=== PATIENT | male | born 1950 | race Caucasian/White ===

== ENCOUNTER → 2021-11-05 13:03 | Outpatient (CLI) | payer MEDICARE, SELFPAY ==
--- NOTE | ~2021-11-05 | MR_ITS ---
EXAMINATION: MR lumbar spine wo con DATE: 11/05/2021 13:38 INDICATION: Chronic low back pain. TECHNIQUE: Magnetic resonance imaging (MRI) of the lumbar spine was performed without intravenous con trast. Sequences included sagittal T2-weighted FSE, sagittal T2-weighted FS FSE, sagittal T1-weighted FSE, and axial T2-weighted FSE. COMPARISON: Lumbar spine radiographs 10/24/2021 FINDINGS: There is 5 degrees levocurvature of lumbar spine. There is 3 mm retrolisthesis of L1 on L2 and L2 on L3. Vertebral body heights are normal. There is mildly decreased disc height at T12-L1 and L1-L2, severely decreased disc height at L2-L3, mildly decreased disc height at L3-L4, and moderately decreased disc height at L4-L5. The distal spinal cord signal intensity is normal. The conus medulla ris is at T12-L1. The following disc levels are specifically discussed: L1-L2: The disc is bulging and has an annular fissure. There is mild bilateral facet joint osteoarthr itis. There is mild bilateral neural foraminal stenosis. There is mild central canal stenosis. L2-L3: The disc is bulging and has an annular fissure. There is no facet joint osteoarthritis. There is moderate bilateral neural foraminal stenosis. There is mild central canal stenosis. L3-L4: The disc is bulging and has an annular fissure. There is mild right and moderate left facet berto int osteoarthritis. There is mild bilateral neural foraminal stenosis. There is mild central canal st enosis. L4-L5: The disc is bulging and has an annular fissure. There is moderate right and severe left facet joint osteoarthritis. There is mild bilateral neural foraminal stenosis. There is mild central canal stenosis. L5-S1: The disc does not extend beyond the endplate margin. There is mild right and moderate left fac et joint osteoarthritis. There is no neural foraminal stenosis. There is no central canal stenosis. IMPRESSION: 1. Severe lumbar spondylosis. Reviewed, dictated and finalized at location A.
== END ==
PROVIDERS: PCP Internal Medicine; Visit Provider Internal Medicine
DX: M47.817 Spondylosis without myelopathy or radiculopathy, lumbosacral region (principal); M48.07 Spinal stenosis, lumbosacral region
CPT/HCPCS: 72148

== ENCOUNTER 2023-09-16 08:19 | Outpatient (CLI) | payer MEDICARE, SELFPAY ==
[2023-09-16 08:37] LABS: Basophils Absolute Auto 0.04 K/mm3 (0.00-0.10); Basophils Percent Auto 0.7 % (0.0-1.0); Eosinophils Absolute Auto 0.08 K/mm3 (0.02-0.50); Eosinophils Percent Auto 1.4 % (1.0-6.0); Hematocrit 44.1 % (37.0-46.0); Hemoglobin 14.7 g/dL (12.4-15.3); Immature Granulocyte Absolute 0.02 K/mm3 (0.00-0.00); Immature Granulocyte Percent A 0.3 % (0.0-0.0); Lymphocytes Absolute Auto 1.59 K/mm3 (1.10-4.50); Lymphocytes Percent Auto 27.5 % (18.0-42.0); Mean Corpuscular HGB Conc 33.3 g/dL (32-36); Mean Corpuscular Hemoglobin 31.7 pg (27.0-31.0); Mean Platelet Volume 9.3 fl (8.7-11.0); Monocytes Absolute Auto 0.73 K/mm3 (0.10-0.90); Monocytes Percent Auto 12.6 % (2.0-11.0); Neutrophils Absolute Auto 3.33 K/mm3 (1.70-7.20); Neutrophils Percent Auto 57.5 % (50.0-70.0); Platelet Count Result 208 K/mm3 (150-420); Red Blood Count 4.64 M/mm3 (4.70-6.10); Red Cell Distribution Width 12.5 % (11.6-14.4); White Blood Count 5.8 K/mm3 (4.8-10.8)
[2023-09-16 08:38] LABS: Appearance Urine Clear (Clear); Bilirubin Urine Negative (Negative); Blood Urine Negative (Negative); Color Urine Yellow (Yellow); Glucose Urine UA Negative (Negative); Ketones Urine Negative (Negative); Leukocyte Esterase Ur Negative (Negative); Nitrate Urine Negative (Negative); Protein Urine Negative (Negative); Urobilinogen Urine 0.2 mg/dL (0.2-1.0)
[2023-09-16 08:49] LABS: Add Urine Microscopic? NO
[2023-09-16 08:50] LABS: Hemoglobin A1C 5.5 % (<5.7)
[2023-09-16 09:18] LABS: Alanine Aminotransferase 34 U/L (16-63); Albumin Level 3.6 g/dL (3.4-5.0); Alkaline Phosphatase 78 U/L (46-116); Anion Gap 10 mmol/L (4-12); Aspartate Amino Transferase 26 U/L (15-37); Bilirubin,Total 0.7 mg/dL (0.00-1.00); Blood Urea Nitrogen 16 mg/dL (7-18); Carbon Dioxide 28 mmol/L (21-32); Chloride 99 mmol/L (98-108); Cholesterol 157 mg/dL (0-200); Creatine Kinase 152 U/L (39-308); Estimated Glomerular Filt Rate > 60; Free T3 3.21 pg/mL (2.18-3.98); Glucose 114 mg/dL (70-99); HDL Direct 77 mg/dL (40-60); LDL Cholesterol Calculated 61 mg/dL (<130); NT Pro B Type Natriuretic Pept 524 pg/mL (0-125); Osmolality Calculated 286 mOsm/kg (285-295); Sodium 137 mmol/L (136-145); Thyroid Stimulating Hormone 1.74 uIU/mL (0.36-3.74); Total Protein 6.2 g/dL (6.4-8.2); Triglycerides 97 mg/dL (0-150)
== END 2023-09-16 08:20 | disposition home or self-care (01) ==
PROVIDERS: PCP Internal Medicine; Visit Provider Internal Medicine
DX: I48.0 Paroxysmal atrial fibrillation (principal); R73.01 Impaired fasting glucose; I10 Essential (primary) hypertension; E78.2 Mixed hyperlipidemia; I50.9 Heart failure, unspecified
CPT/HCPCS: 36415; 80053; 80061; 81003; 82550; 83036; 83880; 84439; 84443; 84481; 85025

== ENCOUNTER 2024-03-28 07:14 | Outpatient (CLI) | payer MEDICARE, SELFPAY ==
[2024-03-28 07:27] LABS: Basophils Absolute Auto 0.06 K/mm3 (0.00-0.10); Basophils Percent Auto 0.8 % (0.0-1.0); Eosinophils Absolute Auto 0.13 K/mm3 (0.02-0.50); Eosinophils Percent Auto 1.7 % (1.0-6.0); Hematocrit 46.1 % (37.0-46.0); Hemoglobin 16.3 g/dL (12.4-15.3); Immature Granulocyte Absolute 0.05 K/mm3 (0.00-0.00); Immature Granulocyte Percent A 0.7 % (0.0-0.0); Lymphocytes Absolute Auto 2.12 K/mm3 (1.10-4.50); Lymphocytes Percent Auto 27.6 % (18.0-42.0); Mean Corpuscular HGB Conc 35.4 g/dL (32-36); Mean Corpuscular Hemoglobin 33.1 pg (27.0-31.0); Mean Corpuscular Volume 93.7 fL (78.0-102.0); Mean Platelet Volume 9.2 fl (8.7-11.0); Monocytes Absolute Auto 1.14 K/mm3 (0.10-0.90); Monocytes Percent Auto 14.8 % (2.0-11.0); Neutrophils Absolute Auto 4.18 K/mm3 (1.70-7.20); Neutrophils Percent Auto 54.4 % (50.0-70.0); Platelet Count Result 239 K/mm3 (150-420); Red Blood Count 4.92 M/mm3 (4.70-6.10); Red Cell Distribution Width 12.6 % (11.6-14.4); White Blood Count 7.7 K/mm3 (4.8-10.8)
[2024-03-28 07:28] LABS: Add Urine Microscopic? NO; Appearance Urine Clear (Clear); Bilirubin Urine Negative (Negative); Blood Urine Negative (Negative); Color Urine Light Yellow (Yellow); Glucose Urine UA Negative (Negative); Ketones Urine Negative (Negative); Leukocyte Esterase Ur Negative (Negative); Nitrate Urine Negative (Negative); Protein Urine Negative (Negative); Specific Grav Ur <= 1.005 (1.010-1.020); Urobilinogen Urine 0.2 mg/dL (0.2-1.0)
[2024-03-28 07:42] LABS: Creatinine Urine 65.81 mg/dL (40-278)
[2024-03-28 07:44] LABS: Hemoglobin A1C 5.4 % (<5.7)
[2024-03-28 07:53] LABS: MALB Creatinine Ratio 19.7 mg/g (0-30); Microalbumin Urine Random < 13.0 mg/L
[2024-03-28 08:05] LABS: Albumin Level 3.5 g/dL (3.4-5.0); Alkaline Phosphatase 83 U/L (46-116); Anion Gap 7 mmol/L (4-12); Aspartate Amino Transferase 17 U/L (15-37); Bilirubin,Total 0.7 mg/dL (0.00-1.00); Blood Urea Nitrogen 16 mg/dL (7-18); Calcium 9.4 mg/dL (8.5-10.1); Carbon Dioxide 29 mmol/L (21-32); Chloride 98 mmol/L (98-108); Creatine Kinase 97 U/L (39-308); Estimated Glomerular Filt Rate > 60; Glucose 121 mg/dL (70-99); HDL Direct 74 mg/dL (40-60); Osmolality Calculated 280 mOsm/kg (285-295); Potassium 4.3 mmol/L (3.5-5.1); Sodium 134 mmol/L (136-145); Total Protein 6.2 g/dL (6.4-8.2); Triglycerides 128 mg/dL (0-150)
[2024-03-28 09:13] LABS: Alanine Aminotransferase 38 U/L (16-63); Cholesterol 176 mg/dL (0-200); LDL Cholesterol Calculated 76 mg/dL (<130)
== END 2024-03-28 07:15 | disposition home or self-care (01) ==
LOC: CHSLAB 07:16
PROVIDERS: PCP Internal Medicine; Visit Provider Internal Medicine
DX: E78.2 Mixed hyperlipidemia (principal); E11.9 Type 2 diabetes mellitus without complications; I10 Essential (primary) hypertension; C61 Malignant neoplasm of prostate
CPT/HCPCS: 36415; 80053; 80061; 81003; 82043; 82550; 83036; 85025

== ENCOUNTER 2024-09-07 07:05 | Outpatient (CLI) | payer MEDICARE, SELFPAY ==
--- OUTSIDE RECORDS SUMMARY | 2024-09-07 07:09 | XMS_ITS | Clinical Summary ---
Author Organization [facility] Address [facility] [address] [facility] [place] [address] Phone Care Team Providers Care Video Game Developer Name Role Phone Nicole Osman MD Primary Care Provider + Allergies No known active allergies Medications metoprolol tartrate (LOPRESSOR) 25 mg tablet TAKE 1/2 TABLET BY MOUTH 2 TIMES PER DAY 1 9 Active apixaban (Eliquis) 5 mg tablet TAKE 1 TABLET BY MOUTH TWICE A DAY 180 Tablet 1 0 Active lisinopriL (PRINIVIL) 10 mg tablet Take 1 Tablet (10 mg) by mouth daily. 100 Tablet 3 3 Active alirocumab (Praluent Pen) 75 mg/mL Pen Injector 75 mg PE/mL by Injection route every 30 days. 2 Active Active Problems Patient Care Coordination No te Formatting of this note migh t be different from the original. Narendra Arvizu MD--Residential Treatment Counselor ([facility] V[facility] @ ) Problem Noted Date Diagnosed Date Benign hypertension 10/20/2018 Paroxysmal atrial fibrillation 10/20/2018 Mixed hyperlipidemia 10/20/2018 Encounters Date Type Department Care Team Description 08/08/2024 External Device Data STL ABSTRACTION Provider, Abstract 08/07/2024 10:45 AM CDT Office Visit [facility] At [facility] [address] [place] [address] Bryon Maloney MD Paroxysmal atrial fibrillation (CMS/HCC) (Primary Dx); Mixed hyperlipidemia; Benign hypertension 08/01/2024 External Device Data STL ABSTRACTION Provider, Abstract 07/12/2024 External Device Data STL ABSTRACTION Provider, Abstract 07/03/2024 External Device Data STL ABSTRACTION Provider, Abstract 06/20/2024 External Device Data STL ABSTRACTION Provider, Abstract from Last 3 Months Family History Medical History Relation Name Comments No Known Problems Father No Known Problems Mother No Known Problems Sister Relation Name Status Comments Father Mother Sister Alive Social History Tobacco Use Types Packs/Day Years Used Date Smoking Tobacco: Smoker, Current Status Unknown Smokeless Tobacco: Former Tobacco Cessation:Ready to Q uit: Not Asked; Counseling Given: Not Answered Alcohol Use Standard Drinks/Week Comments Yes 0 (1 standard drink = 0.6 oz pur e alcohol) Sex and Gender Information Value Date Recorded Sex Assigned at Not on file Legal Sex Male 11:27 AM CDT Gender Identity Not on file Sexual Orientation Not on file Last Filed Vital Signs Vital Sign Reading Time Taken Comments Blood Pressure 118/74 08/07/2024 10:36 AM CDT Pulse 71 08/07/2024 10:36 AM CDT Temperature 36.2 C (97.2 F) 07/07/2021 3:05 PM CDT Respiratory Rate - - Oxygen Saturation 93% 08/07/2024 10:36 AM CDT Inhaled Oxygen Concentration - - Weight 86.2 kg (190 lb) 08/07/2024 10:36 AM CDT Height 177.8 cm (5' 10 ) 08/07/2024 10:36 AM CDT Body Mass Index 27.26 08/07/2024 10:36 AM CDT Plan of Treatment Upcoming Encounters Date Type Department Care Team (Late st Contact Info) Description 02/05/2025 10:45 AM CDT Office Visit [facility] At [place] [address] [place] [address] Bryon Maloney MD [facility] [address] [facility] [address] [place] [address] Health Maintenance Due Date Last Done Comments DTAP/TDAP/TD VACCINES (1 - Tdap) 1970 PNEUMOCOCCAL VACCINE 50+ YEARS (1 of 2 - PCV) 04/01/19 70 FIT-DNA Q 3 years 1996 FIT/FOBT Q 1 year 1996 Flex Sig/CT Colonography Q 5 years 1996 ZOSTER VACCINE (1 of 2) 2001 Abdominal Aortic Aneurysm (AAA) Screening 2016 INFLUENZA VACCINE (#1) 2023 COLORECTAL SCREENING 04/26/2024 04/26/2014 Colorectal Cancer Screening 04/26/2024 RSV VACCINE (60+ or ) (1 - 1-dose 75+ series) 2026 Insurance MEDICARE PART A AND B [facility] Care Teams Video Game Developer Relationship Specialty Start Date End Date Nicole Osman MD [address] [place] [address] PCP - General Internal Medicine 06/22/19
[2024-09-07 07:23] LABS: Hematocrit 45.3 % (37.0-46.0); Hemoglobin 15.1 g/dL (12.4-15.3); Mean Corpuscular HGB Conc 33.3 g/dL (32-36); Mean Corpuscular Hemoglobin 31.3 pg (27.0-31.0); Mean Platelet Volume 9.3 fl (8.7-11.0); Platelet Count Result 238 K/mm3 (150-420); Red Blood Count 4.82 M/mm3 (4.70-6.10); Red Cell Distribution Width 12.6 % (11.6-14.4); White Blood Count 7.2 K/mm3 (4.8-10.8)
[2024-09-07 07:24] LABS: Add Urine Microscopic? NO; Appearance Urine Clear (Clear); Bilirubin Urine Negative (Negative); Blood Urine Negative (Negative); Color Urine Light Yellow (Yellow); Glucose Urine UA Negative (Negative); Ketones Urine Negative (Negative); Leukocyte Esterase Ur Negative LEU/UL (Negative); Nitrate Urine Negative (Negative); Protein Urine Negative (Negative); Specific Grav Ur <= 1.005 (1.010-1.020); Urobilinogen Urine 0.2 mg/dL (0.2-1.0)
[2024-09-07 07:44] LABS: Hemoglobin A1C 5.5 % (<5.7)
[2024-09-07 08:30] LABS: Alanine Aminotransferase 24 U/L (6-50); Albumin Level 3.6 g/dL (3.5-5.1); Alkaline Phosphatase 66 U/L (38-126); Anion Gap 4 mmol/L (4-12); Aspartate Amino Transferase 27 U/L (17-59); Bilirubin,Total 0.6 mg/dL (0.2-1.3); Blood Urea Nitrogen 13 mg/dL (9-20); Calcium 8.9 mg/dL (8.4-10.2); Carbon Dioxide 27 mmol/L (22-30); Chloride 101 mmol/L (98-107); Cholesterol 106 mg/dL (0-200); Estimated Glomerular Filt Rate > 60; Glucose 112 mg/dL (65-110); HDL Direct 59 mg/dL; LDL Cholesterol Calculated 23 mg/dL (<130); Osmolality Calculated 275 mOsm/kg (285-295); Potassium 4.5 mmol/L (3.4-5.0); Sodium 132 mmol/L (137-145); Total Protein 5.7 g/dL (6.3-8.2); Triglycerides 119 mg/dL (<150)
== END 2024-09-07 07:06 | disposition home or self-care (01) ==
LOC: CHSLAB 07:07
PROVIDERS: PCP Internal Medicine; Visit Provider Internal Medicine
DX: E78.2 Mixed hyperlipidemia (principal); R73.01 Impaired fasting glucose; N39.0 Urinary tract infection, site not specified
CPT/HCPCS: 36415; 80053; 80061; 81003; 83036; 85027

== ENCOUNTER 2024-09-25 10:59 | Outpatient (CLI) | payer MEDICARE, SELFPAY ==
--- OUTSIDE RECORDS SUMMARY | 2024-09-25 11:39 | XMS_ITS | Clinical Summary ---
Author Organization [facility] Address [address] [place] [address] Phone Care Team Providers Care Woodyard Operator Name Role Phone Nicole Osman MD Primary [...] be different from the original. Narendra Arvizu MD--Advertising Columnist ([facility] and Vascular @ ) Problem Noted Date Diagnosed Date Benign hypertension 10/20/2018 Paroxysmal atrial fibrillation 10/20/2018 Mixed hyperlipidemia 10/20/2018 Encounters Date Type Department Care Team Description 09/14/2024 External Device Data STL ABSTRACTION Provider, Abstract 09/14/2024 External Device Data STL ABSTRACTION Provider, Abstract 09/13/2024 External Device Data STL ABSTRACTION Provider, Abstract 09/13/2024 External Device Data STL ABSTRACTION Provider, Abstract 09/12/2024 External Device Data STL ABSTRACTION Provider, Abstract 08/08/2024 External Device Data STL ABSTRACTION Provider, Abstract 08/07/2024 10:45 AM CDT Office Visit [facility] At [address] [place] [address] Bryon Maloney MD Paroxysmal atrial fibrillation (CMS/HCC) [...] 10:36 AM CDT Height 177.8 cm (5' 10) 08/07/2024 10:36 AM CDT Body Mass Index 27.26 08/07/2024 10:36 AM CDT Plan of Treatment Upcoming Encounters Date Type Department Care Team (Late st Contact Info) Description 02/05/2025 10:45 AM CDT Office Visit [facility] V[facility] At [address] [place] [address] Bryon Maloney MD [address] [place] [address] [address] [place] [address] Health Maintenance Due Date Last Done Comments [...] 2026 Insurance MEDICARE PART A AND B [facility] Care Teams Woodyard Operator Relationship Specialty Start Date End Date Nicole Osman MD [address] [place] [address] PCP - General Internal Medicine 06/22/19
[2024-09-25 11:50] LABS: Free T4 Free Thyroxine 1.24 ng/dL (0.78-2.19)
[2024-09-25 12:03] LABS: Free T3 4.39 pg/mL (2.18-3.98)
== END 2024-09-25 11:00 | disposition home or self-care (01) ==
LOC: CHSLAB 11:01
PROVIDERS: PCP Internal Medicine; Visit Provider Internal Medicine
DX: I73.9 Peripheral vascular disease, unspecified (principal); E11.9 Type 2 diabetes mellitus without complications; I10 Essential (primary) hypertension
CPT/HCPCS: 36415; 82607; 84439; 84443; 84481; 86038; 86039

== ENCOUNTER 2024-11-15 09:06 | Outpatient (CLI) | payer MEDICARE, SELFPAY ==
--- OUTSIDE RECORDS SUMMARY | 2024-11-15 09:21 | XMS_ITS | Clinical Summary ---
Author Organization [facility] Address [address] [address] Phone Care Team Providers Care Floor Layer Helper Name Role Phone Nicole Osman MD Primary [...] be different from the original. Narendra Arvizu MD--Hide Measuring Machine Operator ([facility] Vascular @ ) Problem Noted Date Diagnosed Date Benign hypertension 10/20/2018 Paroxysmal atrial fibrillation 10/20/2018 Mixed hyperlipidemia 10/20/2018 Encounters Date Type Department Care Team Description 10/10/2024 External Device Data STL ABSTRACTION Provider, Abstract [...] Description 02/05/2025 10:45 AM CDT Office Visit [facility] Heart and Vascular At [address] [place] [address] Bryon Maloney MD [address] [address] [address] [place] [address] Health Maintenance Due Date Last Done Comments DTAP/TDAP/TD VACCINES (1 - Tdap) 1970 PNEUMOCOCCAL VACCINE 50+ YEARS (1 of 2 - PCV) 04/01/19 70 FIT-DNA Q 3 years 1996 FIT/FOBT Q 1 year 1996 Flex Sig/CT Colonography Q 5 years 1996 ZOSTER VACCINE (1 of 2) 2001 Abdominal Aortic Aneurysm (AAA) Screening 2016 COLORECTAL SCREENING 04/26/2024 04/26/2014 Colorectal Cancer Screening 04/26/2024 INFLUENZA VACCINE (#1) 2024 RSV VACCINE (60+ or ) (1 - 1-dose 75+ series) 2026 Insurance MEDICARE PART A AND B [facility] Care Teams Floor Layer Helper Relationship Specialty Start Date End Date Nicole Osman MD [address] [place] [address] PCP - General Internal Medicine 06/22/19
--- NOTE | 2024-11-15 11:30 | NEURO_ITS ---
Impression: #Non diabetic Complains of numbness of feet ? 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 ? # Status post left knee surgery. ? # Bilateral mild evolving Carpal Tunnel Syndrome. # Bilateral ulnar neuropathy across the elbows. # Mild neurogenic changes noted on Needle/EMG exam. Nerve Conduction Studies ?Stim Site NR Peak (ms) P-T Amp (?V) Site1 Site2 Delta-P (ms) Dist (cm) Alek (m/s) Left Median Anti Sensory (2-3nd Digit) Wrist ? 4.0 21.9 Wrist 2-3nd Digit 4.0 14.0 35 Wrist ? 4.0 20.8 Wrist 2-3nd Digit 4.0 14.0 35 Right Median Anti Sensory (2-3nd Digit) Wrist ? 4.0 25.4 Wrist 2-3nd Digit 4.0 14.0 35 Wrist ? 4.0 25.5 Wrist 2-3nd Digit 4.0 14.0 35 Left Radial Anti Sensory (Base 1st Digit) Wrist ? 2.2 22.1 Wrist Base 1st Digit 2.2 0.0 Right Radial Anti Sensory (Base 1st Digit) Wrist ? 2.4 22.7 Wrist Base 1st Digit 2.4 0.0 Left Saphenous Anti Sensory (Ant Med Mall) 14cm ? 2.8 4.6 14cm Ant Med Mall 2.8 0.0 Right Saphenous Anti Sensory (Ant Med Mall) 14cm ? 3.0 4.8 14cm Ant Med Mall 3.0 0.0 Left Sup Fibular Anti Sensory (Ant Lat Mall) 14 cm ? 3.7 13.4 14 cm Ant Lat Mall 3.7 16.0 43 Right Sup Fibular Anti Sensory (Ant Lat Mall) 14 cm ? 3.1 3.2 14 cm Ant Lat Mall 3.1 16.0 52 Left Sural Anti Sensory (Lat Mall)??? NO RESPONSE Calf NR Calf Lat Mall 16.0 Right Sural Anti Sensory (Lat Mall) Calf ? 3.7 7.4 Calf Lat Mall 3.7 16.0 43 Left Ulnar Anti Sensory (5th Digit) Wrist ? 2.9 43.2 Wrist 5th Digit 2.9 14.0 48 Right Ulnar Anti Sensory (5th Digit) Wrist ? 2.6 35.8 Wrist 5th Digit 2.6 14.0 54 ?Stim Site NR Onset (ms) O-P Amp (mV) Site1 Site2 Delta-0 (ms) Dist (cm) Alek (m/s) Left Median Motor (Abd Poll Brev) Wrist ? 4.1 4.5 Elbow Wrist 5.3 29.0 55 Elbow ? 9.4 4.1 Right Median Motor (Abd Poll Brev) Wrist ? 4.3 3.3 Elbow Wrist 5.3 30.0 57 Elbow ? 9.6 5.7 Left Peroneal Motor (Vastus Med) Ankle ? 4.5 3.0 Popit Ankle 10.3 43.0 42 Popit ? 14.8 2.7 Right Peroneal Motor (Vastus Med) Ankle ? 4.1 2.1 Popit Ankle 9.8 42.0 43 Popit ? 13.9 1.1 Left Tibial Motor (Abd Cruz Brev) Ankle ? 4.5 2.7 Knee Ankle 10.8 44.0 41 Knee ? 15.3 0.4 Right Tibial Motor (Abd Cruz Brev) Ankle ? 4.7 4.8 Knee Ankle 8.9 42.0 47 Knee ? 13.6 3.0 Left Ulnar Motor (Abd Dig Minimi) Wrist ? 2.8 6.1 A Elbow Wrist 6.6 32.0 48 A Elbow ? 9.4 3.6 B Elbow Wrist 4.1 22.0 54 B Elbow ? 6.9 3.5 Right Ulnar Motor (Abd Dig Minimi) Wrist ? 2.8 6.0 A Elbow Wrist 6.0 31.0 52 A Elbow ? 8.8 5.2 B Elbow Wrist 3.5 22.0 63 B Elbow ? 6.3 5.6 Electromyography ?Side Muscle Nerve Root Ins Act Fibs Amp Dur Recrt Comment Right 1stDorInt Ulnar C8-T1 Nml Nml Nml Nml Nml Right Ext Indicis Radial (Post Int) C7-8 Nml Nml Nml Nml Nml Right Ext Digitorum Radial (Post Int) C7-8 Nml Nml Nml Nml Nml Right BrachioRad Radial C5-6 Nml Nml Nml Nml Nml Right PronatorTeres Median C6-7 Nml Nml Nml Nml Nml Right Abd Poll Brev Median C8-T1 Nml Nml Nml Nml Nml Right ABD Dig Min Ulnar C8-T1 Nml Nml Nml Nml Nml Right FlexPolLong Median (Ant Int) C7-8 Nml Nml Nml Nml Nml Right Abd Poll Long Radial (Post Int) C7-8 Nml Nml Nml Nml Nml Right AntTibialis Dp Br Fibular L4-5 Nml Nml Nml Nml Nml Right Gastroc Tibial S1-2 Nml Nml Nml Nml Nml Right Fibularis Long Sup Br Fibular L5-S1 Nml Nml Nml Nml Nml Right Flex Dig Long Tibial L5-S2 Nml Nml Nml Nml Nml Right Ext Dig Brev Dp Br Fibular L5, S1 Nml Nml Nml Nml Nml Right QuadratusFem QuadFemoris L4-5, S1 Nml Nml Nml Nml Nml Left AntTibialis Dp Br Fibular L4-5 Nml Nml Nml Nml Nml Left Gastroc Tibial S1-2 Nml Nml Nml Nml Nml Left Fibularis Long Sup Br Fibular L5-S1 Nml Nml Nml Nml Nml Left Flex Dig Long Tibial L5-S2 Nml Nml Nml Nml Nml Left Ext Dig Brev Dp Br Fibular L5, S1 Nml Nml Nml Nml Nml Left QuadratusFem QuadFemoris L4-5, S1 Nml Nml Nml Nml Nml Left 1stDorInt Ulnar C8-T1 Nml Nml Nml Nml Nml Left Ext Indicis Radial (Post Int) C7-8 Nml Nml Nml Nml Nml Left Ext Digitorum Radial (Post Int) C7-8 Nml Nml Nml Nml Nml Left BrachioRad Radial C5-6 Nml Nml Nml Nml Nml Left PronatorTeres Median C6-7 Nml Nml Nml Nml Nml Left Abd Poll Brev Median C8-T1 Nml Nml Nml Nml Nml Left ABD Dig Min Ulnar C8-T1 Nml Nml Nml Nml Nml Left FlexPolLong Median (Ant Int) C7-8 Nml Nml Nml Nml Nml Left Abd Poll Long Radial (Post Int) C7-8 Nml Nml Nml Nml Nml
== END 2024-11-15 09:07 | disposition home or self-care (01) ==
LOC: ANHNEURO 09:08
PROVIDERS: PCP Internal Medicine; Visit Provider Internal Medicine
DX: G56.23 Lesion of ulnar nerve, bilateral upper limbs (principal); G56.03 Carpal tunnel syndrome, bilateral upper limbs; Z98.890 Other specified postprocedural states
CPT/HCPCS: 95886; 95913

== ENCOUNTER 2024-12-11 07:09 | Outpatient (CLI) | payer MEDICARE, SELFPAY ==
--- OUTSIDE RECORDS SUMMARY | 2024-12-11 07:13 | XMS_ITS | Clinical Summary ---
Author Organization [facility] Address [address] [place] [address] Phone Care Team Providers Care Adviser Sales Name Role Phone Nicole Osman MD Primary [...] be different from the original. Narendra Arvizu MD--Snake Charmer ([facility] Heart and Vascular @ ) Problem Noted [...] Description 02/05/2025 10:45 AM CDT Office Visit [facility] and Vascular At [address] [place] [address] Bryon Maloney MD [address] [place] [address] [address] [place] [address] Health Maintenance Due Date Last [...] 2026 Insurance MEDICARE PART A AND B [facility] Care Teams Adviser Sales Relationship Specialty Start Date End Date Nicole Osman MD [address] [place] [address] PCP - General Internal Medicine 06/22/19
[2024-12-11 07:44] LABS: Alanine Aminotransferase 30 U/L (6-50); Albumin Level 4.2 g/dL (3.5-5.1); Alkaline Phosphatase 74 U/L (38-126); Anion Gap 5 mmol/L (4-12); Aspartate Amino Transferase 42 U/L (17-59); Bilirubin,Total 0.9 mg/dL (0.2-1.3); Blood Urea Nitrogen 13 mg/dL (9-20); Calcium 9.7 mg/dL (8.4-10.2); Carbon Dioxide 28 mmol/L (22-30); Chloride 103 mmol/L (98-107); Cholesterol 174 mg/dL (0-200); Estimated Glomerular Filt Rate > 60; Glucose 124 mg/dL (65-110); HDL Direct 89 mg/dL; Osmolality Calculated 283 mOsm/kg (285-295); Potassium 4.5 mmol/L (3.4-5.0); Sodium 136 mmol/L (137-145); Total Protein 6.3 g/dL (6.3-8.2); Triglycerides 132 mg/dL (<150)
== END 2024-12-11 07:10 | disposition home or self-care (01) ==
LOC: CHSLAB 07:11
PROVIDERS: PCP Internal Medicine; Visit Provider Internal Medicine
DX: E78.2 Mixed hyperlipidemia (principal); I10 Essential (primary) hypertension
CPT/HCPCS: 36415; 80053; 80061

== ENCOUNTER 2024-12-13 08:58 | Outpatient (CLI) | payer MEDICARE, SELFPAY ==
--- NOTE | ~2024-12-13 | MR_ITS ---
MRI of the lumbar spine Clinical History: Back pain Technique: Axial T2-weighted images, and sagittal T1-weighted, T2-weighted, and T2 fat-sat images were acquired. COMPARISON: 11/05/2021 Findings: No acute fracture seen. Osseous alignment is unchanged. Stable 5 mm retrolisthesis of L2 over L3. No suspicious bone marrow signal abnormality seen. At L1-L2, there is mild disc bulge and mild to moderate facet arthropathy. No central canal stenosis or neural foraminal narrowing. At L2-L3, there is severe degenerative disc narrowing. There is mild disc bulge with moderate facet arthropathy. No central canal stenosis. There is mild left neural foraminal narrowing, and moderate to advanced right neural foraminal narrowing. At L3-L4, there is disc bulge with moderate to advanced facet arthropathy. No central canal stenosis. There is moderate to advanced left neural foraminal narrowing. There is mild right neural foraminal narrowing. At L4-L5, there is diffuse disc bulge with severe facet arthropathy. No central canal stenosis. There is mild left neural foraminal narrowing. At L5-S1, there is no disc bulge or herniation. There is moderate facet arthropathy. No central canal stenosis or neural foraminal narrowing. Paravertebral soft tissues are unremarkable. Impression: Moderate degenerative spondylosis, as above, worst at L2-L3 and L3-L4. Stable 5 mm retrolisthesis of L2 over L3. Reviewed, dictated and finalized at [facility]. Impression: Moderate degenerative spondylosis, as above, worst at L2-L3 and L3-L4. Stable 5 mm retrolisthesis of L2 over L3.
== END 2024-12-13 08:59 | disposition home or self-care (01) ==
LOC: GOSHIMG 08:59
PROVIDERS: PCP Internal Medicine; Visit Provider Internal Medicine
DX: M47.896 Other spondylosis, lumbar region (principal); M43.16 Spondylolisthesis, lumbar region
CPT/HCPCS: 72148

== ENCOUNTER 2025-04-04 07:15 | Outpatient (CLI) | payer MEDICARE, SELFPAY ==
[2025-04-04 07:29] LABS: Add Urine Microscopic? NO; Appearance Urine Clear (Clear); Glucose Urine UA Negative (Negative); Hematocrit 44.1 % (37.0-46.0); Hemoglobin 14.8 g/dL (12.4-15.3); Leukocyte Esterase Ur Negative LEU/UL (Negative); Mean Corpuscular HGB Conc 33.6 g/dL (32-36); Mean Corpuscular Hemoglobin 32.4 pg (27.0-31.0); Mean Corpuscular Volume 96.5 fL (78.0-102.0); Nitrate Urine Negative (Negative); Platelet Count Result 196 K/mm3 (150-420); Red Blood Count 4.57 M/mm3 (4.70-6.10); Specific Grav Ur <= 1.005 (1.010-1.020); White Blood Count 6.4 K/mm3 (4.8-10.8)
[2025-04-04 07:55] LABS: Hemoglobin A1C 5.4 % (<5.7)
[2025-04-04 08:10] LABS: Alanine Aminotransferase 25 U/L (6-50); Albumin Level 4.1 g/dL (3.5-5.1); Alkaline Phosphatase 82 U/L (38-126); Anion Gap 6 mmol/L (4-12); Aspartate Amino Transferase 32 U/L (17-59); Bilirubin,Total 0.8 mg/dL (0.2-1.3); Blood Urea Nitrogen 15 mg/dL (9-20); Calcium 9.6 mg/dL (8.4-10.2); Carbon Dioxide 25 mmol/L (22-30); Chloride 106 mmol/L (98-107); Cholesterol 121 mg/dL (0-200); Estimated Glomerular Filt Rate > 60; Glucose 117 mg/dL (65-110); HDL Direct 82 mg/dL; Osmolality Calculated 285 mOsm/kg (285-295); Potassium 4.2 mmol/L (3.4-5.0); Sodium 137 mmol/L (137-145); Total Protein 6.1 g/dL (6.3-8.2); Triglycerides 140 mg/dL (<150)
== END 2025-04-04 07:16 | disposition home or self-care (01) ==
LOC: CHSLAB 07:19
PROVIDERS: PCP Internal Medicine; Visit Provider Internal Medicine
DX: I10 Essential (primary) hypertension (principal); R73.01 Impaired fasting glucose; E78.2 Mixed hyperlipidemia; N39.0 Urinary tract infection, site not specified
CPT/HCPCS: 36415; 80053; 80061; 81003; 83036; 85027